=== PATIENT | female | born 1935 | race African-American/Black ===

== ENCOUNTER 2019-11-29 17:49 | Inpatient (IN) | payer MEDICARE, OTHER ==
[~2019-11-29] VITALS: Ht 157.5 cm; Wt 75.7 kg
[~2019-11-29 17:49] MED LIST: ALPR0.5T PO; AMLO10TA80 PO; ASPI-1158 PO; ATEN-42 PO; CALC3.8S BOTHNSTRLS; CLOP75TA4 PO; IBUP-1008 PO; KCL PO; LEVO75TA7 PO; OMEP40CA12 PO; PROP20SO PO; SIMV-43 PO; TEMA30CA PO; voltaren gel TOP
[2019-11-29 18:37] LABS: BASOPHILS % 0.9 % (0.0-2.0); EOSINOPHILS % 1.4 % (0.0-5.0); HEMATOCRIT. 39.8 % (36.0-48.0); LYMPHOCYTES % 45.3 % (20.0-50.0); MEAN CORPUSCULAR HEMOGLOBIN 28.2 pg (28.0-32.0); MEAN PLATELET VOLUME 8.7 fl (7.4-10.4); NEUTROPHILS % 46.4 % (40.0-76.0); PLATELET 117 x1000/uL (130-400); RED BLOOD CELL COUNT 4.63 mill/uL (4.2-5.4)
[2019-11-29 18:53] LABS: INR 1.1; PROTHROMBIN TIME 11.1 sec (9.6-11.0)
[2019-11-29 18:58] LABS: CHLORIDE 105 mEq/L (98-107)
[2019-11-29 19:05] LABS: PHOSPHORUS 2.9 mg/dL (2.5-4.9)
[2019-11-29] MEDS ORDERED: POTASSIUM CHLORIDE 20MEQ TABLET SR PO ONE (19:15)
[2019-11-29] MEDS ORDERED: ASPIRIN 81MG TABLET PO ONE (19:45)
[2019-11-29 20:09] LABS: CLARITY URINE CLEAR (CLEAR); COLOR URINE DARK YELLOW (YELLOW); KETONES URINE NEGATIVE (NEGATIVE); LEUKOCYTE ESTERASE URINE TRACE (NEGATIVE); NITRITE URINE NEGATIVE (NEGATIVE); OCCULT BLOOD URINE NEGATIVE (NEGATIVE); PROTEIN URINE 1+ (NEGATIVE); UROBILINOGEN URINE 0.2 E.U./dL (0.2-1.0)
[2019-11-29 23:40] VITALS: BP 137/66
[2019-11-30] MEDS ORDERED: P20 MT (00:27)
[2019-11-30] MEDS ORDERED: MESA1.2T2 PO (00:27)
[2019-11-30] MEDS ORDERED: METO25TA6 MT (00:53)
[2019-11-30] MEDS ORDERED: FURO20TA4 MT (00:53)
[2019-11-30] MEDS ORDERED: ATOR10TA69 MT (00:53)
[2019-11-30] MEDS ORDERED: CLOP75TA4 MT (00:53)
[2019-11-30] MEDS ORDERED: DEXTROSE 50% WATER 50ML SYRINGE IV PRN (01:15)
[2019-11-30] MEDS ORDERED: ACETAMINOPHEN 325MG TABLET PO PRN (01:15)
[2019-11-30] MEDS ORDERED: ONDANSETRON HCL 4MG/2ML INJ IV PRN (01:15)
[2019-11-30 04:00] VITALS: BP 99/45
[2019-11-30] MEDS: BLOOD SUGAR DIAGNOSTIC STRIP TEST SCH ×4 (06:10→21:12)
[2019-11-30] MEDS: LEVOTHYROXINE SODIUM 75MCG TABLET PO SCH (06:12)
[2019-11-30 06:37] LABS: CHLORIDE 105 mEq/L (98-107)
[2019-11-30] MEDS: INSULIN LISPRO 100 UNITS/ML SUBCUT SCH ×4 (06:48→21:19)
[2019-11-30 07:02] LABS: BASOPHILS % 0.6 % (0.0-2.0); EOSINOPHILS % 2.7 % (0.0-5.0); HEMATOCRIT. 38.3 % (36.0-48.0); HEMOGLOBIN. 12.4 g/dL (12.0-16.0); MEAN CORPUSCULAR HEMOGLOBIN 28.5 pg (28.0-32.0); MEAN CORPUSCULAR VOLUME 88.1 fL (81.0-99.0); MEAN PLATELET VOLUME 9.3 fl (7.4-10.4); MONOCYTES % 8.6 % (2.0-8.0); NEUTROPHILS % 47.1 % (40.0-76.0); PLATELET 109 x1000/uL (130-400); RED BLOOD CELL COUNT 4.35 mill/uL (4.2-5.4); RED CELL DISTRIBUTION WIDTH 16.2 % (11.6-14.6)
[2019-11-30] MEDS: PREDNISONE 20MG TABLET PO SCH ×2 (08:37→17:08)
[2019-11-30] MEDS: METOPROLOL TARTRATE 25MG TABLET PO SCH ×2 (08:38→21:00)
[2019-11-30] MEDS: ASPIRIN 81MG EC TABLET PO SCH (08:38)
[2019-11-30] MEDS: CLOPIDOGREL 75MG TABLET PO SCH (08:42)
[2019-11-30] MEDS: ENOXAPARIN 30MG/0.3ML SYR SUBCUT SCH ×2 (08:42→15:05)
[2019-11-30] MEDS: POTASSIUM CHLORIDE 20MEQ TABLET SR PO SCH (08:52)
[2019-11-30] MEDS ORDERED: FUROSEMIDE 40MG/4ML VIAL IVP SCH (09:00)
[2019-11-30 11:49] VITALS: BP 112/95
[2019-11-30 11:52] VITALS: BP 112/55
[2019-11-30 16:00] VITALS: BP 119/73
[2019-11-30] MEDS: FUROSEMIDE 40MG/4ML VIAL IVP SCH (17:08)
[2019-11-30 20:00] VITALS: BP 100/50
[2019-11-30] MEDS: ATORVASTATIN CALCIUM 20MG TABLET PO SCH (20:17)
[2019-12-01] VITALS: BP 104/62
[2019-12-01 04:00] VITALS: BP 130/80
[2019-12-01] MEDS: LEVOTHYROXINE SODIUM 75MCG TABLET PO SCH (06:15)
[2019-12-01] MEDS: BLOOD SUGAR DIAGNOSTIC STRIP TEST SCH ×4 (06:15→21:34)
[2019-12-01] MEDS: INSULIN LISPRO 100 UNITS/ML SUBCUT SCH ×4 (06:18→21:37)
[2019-12-01 08:00] VITALS: BP 111/78
[2019-12-01] MEDS: FUROSEMIDE 40MG/4ML VIAL IVP SCH (08:38)
[2019-12-01] MEDS: POTASSIUM CHLORIDE 20MEQ TABLET SR PO SCH (08:39)
[2019-12-01] MEDS: METOPROLOL TARTRATE 25MG TABLET PO SCH ×2 (08:39→21:00)
[2019-12-01] MEDS: ASPIRIN 81MG EC TABLET PO SCH (08:39)
[2019-12-01] MEDS: PREDNISONE 20MG TABLET PO SCH ×2 (08:39→17:28)
[2019-12-01] MEDS: CLOPIDOGREL 75MG TABLET PO SCH (08:40)
[2019-12-01 12:00] VITALS: BP 112/60
[2019-12-01 16:00] VITALS: BP 105/59
[2019-12-01 18:04] LABS: BASOPHILS % 0.1 % (0.0-2.0); HEMATOCRIT. 38.9 % (36.0-48.0); HEMOGLOBIN. 12.3 g/dL (12.0-16.0); LYMPHOCYTES % 14.8 % (20.0-50.0); MEAN CORPUSCULAR HEMOGLOBIN 27.7 pg (28.0-32.0); MEAN CORPUSCULAR VOLUME 87.3 fL (81.0-99.0); MEAN PLATELET VOLUME 9.8 fl (7.4-10.4); MONOCYTES % 3.8 % (2.0-8.0); NEUTROPHILS % 81.3 % (40.0-76.0); PLATELET 196 x1000/uL (130-400); RED BLOOD CELL COUNT 4.46 mill/uL (4.2-5.4); RED CELL DISTRIBUTION WIDTH 15.9 % (11.6-14.6)
[2019-12-01 20:00] VITALS: BP 105/64
[2019-12-01] MEDS: ATORVASTATIN CALCIUM 20MG TABLET PO SCH (21:34)
[2019-12-02] VITALS: BP 111/66
[2019-12-02 04:00] VITALS: BP 109/51
[2019-12-02] MEDS: BLOOD SUGAR DIAGNOSTIC STRIP TEST SCH ×3 (06:34→17:27)
[2019-12-02] MEDS: INSULIN LISPRO 100 UNITS/ML SUBCUT SCH ×3 (06:37→17:26)
[2019-12-02] MEDS: LEVOTHYROXINE SODIUM 75MCG TABLET PO SCH (06:37)
[2019-12-02 08:00] VITALS: BP 106/55
[2019-12-02] MEDS: METOPROLOL TARTRATE 25MG TABLET PO SCH (09:00)
[2019-12-02] MEDS: POTASSIUM CHLORIDE 20MEQ TABLET SR PO SCH (09:47)
[2019-12-02] MEDS: CLOPIDOGREL 75MG TABLET PO SCH (09:47)
[2019-12-02] MEDS: ASPIRIN 81MG EC TABLET PO SCH (09:47)
[2019-12-02] MEDS: FUROSEMIDE 40MG/4ML VIAL IVP SCH (09:47)
[2019-12-02] MEDS: PREDNISONE 20MG TABLET PO SCH ×2 (09:47→17:26)
[2019-12-02] MEDS: ENOXAPARIN 30MG/0.3ML SYR SUBCUT SCH (09:48)
[2019-12-02 12:00] VITALS: BP 109/56
[2019-12-02 16:17] VITALS: BP 109/56
== END 2019-12-02 17:35 | DRG 291 ==
LOC: ER 17:49 → MICUSO 19:34 → EDBEDREQ 19:38 → EDBEDREQTM 19:38 → 8WST 11-30 00:07
PROVIDERS: ADMIT Internal Medicine; ATTEND Internal Medicine
DX: I13.0 Hypertensive heart and chronic kidney disease with heart failure and stage 1 through stage 4 chronic kidney disease, or unspecified chronic kidney disease (principal); J96.21 Acute and chronic respiratory failure with hypoxia; I50.33 Acute on chronic diastolic (congestive) heart failure; N17.0 Acute kidney failure with tubular necrosis; E43 Unspecified severe protein-calorie malnutrition; E87.1 Hypo-osmolality and hyponatremia; J44.1 Chronic obstructive pulmonary disease with (acute) exacerbation; I42.9 Cardiomyopathy, unspecified; I49.3 Ventricular premature depolarization; D69.6 Thrombocytopenia, unspecified; E03.9 Hypothyroidism, unspecified; E66.9 Obesity, unspecified; E78.5 Hyperlipidemia, unspecified; E87.6 Hypokalemia; F41.9 Anxiety disorder, unspecified; N18.9 Chronic kidney disease, unspecified; E11.22 Type 2 diabetes mellitus with diabetic chronic kidney disease; Z20.828 Contact with and (suspected) exposure to other viral communicable diseases; M48.00 Spinal stenosis, site unspecified; I25.10 Atherosclerotic heart disease of native coronary artery without angina pectoris; Z99.81 Dependence on supplemental oxygen; Z79.890 Hormone replacement therapy; Z79.82 Long term (current) use of aspirin; Z79.899 Other long term (current) drug therapy; Z86.73 Personal history of transient ischemic attack (TIA), and cerebral infarction without residual deficits; Z68.30 Body mass index [BMI] 30.0-30.9, adult; Z90.721 Acquired absence of ovaries, unilateral
CPT/HCPCS: 36415; 71045; 80048; 80053; 81003; 82962; 83036; 83735; 83880; 84100; 84484; 85025; 87635; 93005; 93306; 97110; 97116; 97162; 97166; 97530; 99285; J1650; J1815; J1940; J7512

== ENCOUNTER 2019-12-02 17:35 | Inpatient (IN) | payer MEDICARE, OTHER ==
[~2019-12-02] VITALS: Ht 157.5 cm; Wt 75.8 kg
[~2019-12-02 17:35] MED LIST changes: +ATOR10TA69 MT; +CLOP75TA4 MT; +FURO20TA4 MT; +MESA1.2T2 PO; +METO25TA6 MT; +P20 MT
[2019-12-02] MEDS ORDERED: ONDANSETRON HCL 4MG/2ML INJ IV PRN (18:15)
[2019-12-02] MEDS ORDERED: DEXTROSE 50% WATER 50ML SYRINGE IV PRN (18:15)
[2019-12-02] MEDS ORDERED: ACETAMINOPHEN 325MG TABLET PO PRN (18:15)
[2019-12-02 18:19] VITALS: BP 121/62
[2019-12-02 20:00] VITALS: BP 133/63
[2019-12-02] MEDS: ATORVASTATIN CALCIUM 20MG TABLET PO SCH (20:43)
[2019-12-02] MEDS: METOPROLOL TARTRATE 25MG TABLET PO SCH (20:45)
[2019-12-02] MEDS: BLOOD SUGAR DIAGNOSTIC STRIP TEST SCH (20:48)
[2019-12-02] MEDS: INSULIN LISPRO 100 UNITS/ML SUBCUT SCH (20:55)
[2019-12-03] MEDS: BLOOD SUGAR DIAGNOSTIC STRIP TEST SCH ×4 (06:16→21:09)
[2019-12-03] MEDS: LEVOTHYROXINE SODIUM 75MCG TABLET PO SCH (06:16)
[2019-12-03 07:17] VITALS: BP 130/65
[2019-12-03 07:28] LABS: BASOPHILS % 0.3 % (0.0-2.0); HEMATOCRIT. 36.1 % (36.0-48.0); HEMOGLOBIN. 11.8 g/dL (12.0-16.0); LYMPHOCYTES % 14.2 % (20.0-50.0); MEAN CORPUSCULAR HEMOGLOBIN 28.7 pg (28.0-32.0); MEAN CORPUSCULAR VOLUME 87.7 fL (81.0-99.0); MEAN PLATELET VOLUME 9.4 fl (7.4-10.4); MONOCYTES % 2.8 % (2.0-8.0); NEUTROPHILS % 82.7 % (40.0-76.0); PLATELET 283 x1000/uL (130-400); RED BLOOD CELL COUNT 4.11 mill/uL (4.2-5.4); RED CELL DISTRIBUTION WIDTH 16.1 % (11.6-14.6)
[2019-12-03 07:32] LABS: CHLORIDE 105 mEq/L (98-107)
[2019-12-03] MEDS: INSULIN LISPRO 100 UNITS/ML SUBCUT SCH ×4 (08:45→21:34)
[2019-12-03] MEDS: METOPROLOL TARTRATE 25MG TABLET PO SCH ×2 (08:54→21:12)
[2019-12-03] MEDS: CLOPIDOGREL 75MG TABLET PO SCH (08:54)
[2019-12-03] MEDS: PREDNISONE 20MG TABLET PO SCH ×2 (08:55→17:16)
[2019-12-03] MEDS: ASPIRIN 81MG EC TABLET PO SCH (08:56)
[2019-12-03] MEDS: POTASSIUM CHLORIDE 20MEQ TABLET SR PO SCH (08:56)
[2019-12-03] MEDS: FUROSEMIDE 40MG/4ML VIAL IVP SCH (08:57)
[2019-12-03] MEDS: ENOXAPARIN 30MG/0.3ML SYR SUBCUT SCH (08:57)
[2019-12-03] MEDS ORDERED: ASPIRIN 81MG TABLET PO SCH (09:00)
[2019-12-03 20:00] VITALS: BP 130/65
[2019-12-03] MEDS: ATORVASTATIN CALCIUM 20MG TABLET PO SCH (21:11)
[2019-12-04 00:04] LABS: CLARITY URINE CLEAR (CLEAR); COLOR URINE YELLOW (YELLOW); KETONES URINE NEGATIVE (NEGATIVE); LEUKOCYTE ESTERASE URINE 2+ (NEGATIVE); NITRITE URINE NEGATIVE (NEGATIVE); OCCULT BLOOD URINE NEGATIVE (NEGATIVE); PROTEIN URINE TRACE (NEGATIVE); SPECIFIC GRAVITY URINE 1.017 (1.005-1.030); UROBILINOGEN URINE 0.2 E.U./dL (0.2-1.0)
[2019-12-04] MEDS: BLOOD SUGAR DIAGNOSTIC STRIP TEST SCH ×4 (05:58→21:39)
[2019-12-04] MEDS: INSULIN LISPRO 100 UNITS/ML SUBCUT SCH ×4 (05:58→21:42)
[2019-12-04] MEDS: LEVOTHYROXINE SODIUM 75MCG TABLET PO SCH (06:08)
[2019-12-04 06:18] LABS: BASOPHILS % 0.2 % (0.0-2.0); HEMATOCRIT. 36.1 % (36.0-48.0); HEMOGLOBIN. 11.8 g/dL (12.0-16.0); MEAN CORPUSCULAR HEMOGLOBIN 28.4 pg (28.0-32.0); MEAN CORPUSCULAR VOLUME 86.9 fL (81.0-99.0); MEAN PLATELET VOLUME 8.4 fl (7.4-10.4); MONOCYTES % 4.7 % (2.0-8.0); NEUTROPHILS % 79.1 % (40.0-76.0); PLATELET 337 x1000/uL (130-400); RED BLOOD CELL COUNT 4.15 mill/uL (4.2-5.4)
[2019-12-04 06:42] LABS: PHOSPHORUS 3.6 mg/dL (2.5-4.9)
[2019-12-04 07:01] LABS: FOLIC ACID (FOLATE) SERUM 15.1 ng/mL (>5.38)
[2019-12-04 08:10] VITALS: BP 148/99
[2019-12-04] MEDS: POTASSIUM CHLORIDE 20MEQ TABLET SR PO SCH (08:49)
[2019-12-04] MEDS: FUROSEMIDE 40MG/4ML VIAL IVP SCH (08:49)
[2019-12-04] MEDS: ASPIRIN 81MG EC TABLET PO SCH (08:49)
[2019-12-04] MEDS: CLOPIDOGREL 75MG TABLET PO SCH (08:49)
[2019-12-04] MEDS: PREDNISONE 20MG TABLET PO SCH ×2 (08:50→16:14)
[2019-12-04] MEDS: METOPROLOL TARTRATE 25MG TABLET PO SCH ×2 (08:50→21:39)
[2019-12-04] MEDS: ENOXAPARIN 30MG/0.3ML SYR SUBCUT SCH (08:51)
[2019-12-04 20:00] VITALS: BP 126/63
[2019-12-04] MEDS: ATORVASTATIN CALCIUM 20MG TABLET PO SCH (21:38)
[2019-12-05] MEDS: LEVOTHYROXINE SODIUM 75MCG TABLET PO SCH (06:02)
[2019-12-05] MEDS: BLOOD SUGAR DIAGNOSTIC STRIP TEST SCH ×4 (06:02→21:00)
[2019-12-05] MEDS: INSULIN LISPRO 100 UNITS/ML SUBCUT SCH ×4 (06:02→22:40)
[2019-12-05 07:41] VITALS: BP 123/43
[2019-12-05] MEDS: CLOPIDOGREL 75MG TABLET PO SCH (08:19)
[2019-12-05] MEDS: FUROSEMIDE 40MG/4ML VIAL IVP SCH (08:19)
[2019-12-05] MEDS: PREDNISONE 20MG TABLET PO SCH (08:19)
[2019-12-05] MEDS: POTASSIUM CHLORIDE 20MEQ TABLET SR PO SCH (08:19)
[2019-12-05] MEDS: ASPIRIN 81MG EC TABLET PO SCH (08:19)
[2019-12-05] MEDS: METOPROLOL TARTRATE 25MG TABLET PO SCH (08:20)
[2019-12-05] MEDS: ENOXAPARIN 30MG/0.3ML SYR SUBCUT SCH (08:20)
[2019-12-05 20:00] VITALS: BP 142/62
[2019-12-05] MEDS: ATORVASTATIN CALCIUM 20MG TABLET PO SCH (22:39)
[2019-12-06] MEDS: BLOOD SUGAR DIAGNOSTIC STRIP TEST SCH ×4 (06:12→21:34)
[2019-12-06] MEDS: INSULIN LISPRO 100 UNITS/ML SUBCUT SCH ×4 (06:12→21:34)
[2019-12-06] MEDS: LEVOTHYROXINE SODIUM 75MCG TABLET PO SCH (06:29)
[2019-12-06 06:54] LABS: BASOPHILS % 0.4 % (0.0-2.0); EOSINOPHILS % 0.6 % (0.0-5.0); HEMATOCRIT. 37.5 % (36.0-48.0); HEMOGLOBIN. 12.2 g/dL (12.0-16.0); LYMPHOCYTES % 24.9 % (20.0-50.0); MEAN CORPUSCULAR HEMOGLOBIN 28.4 pg (28.0-32.0); MEAN CORPUSCULAR VOLUME 87.4 fL (81.0-99.0); MEAN PLATELET VOLUME 7.9 fl (7.4-10.4); MONOCYTES % 6.8 % (2.0-8.0); NEUTROPHILS % 67.3 % (40.0-76.0); PLATELET 389 x1000/uL (130-400); RED BLOOD CELL COUNT 4.29 mill/uL (4.2-5.4); RED CELL DISTRIBUTION WIDTH 16.3 % (11.6-14.6)
[2019-12-06 07:47] LABS: PHOSPHORUS 3.2 mg/dL (2.5-4.9)
[2019-12-06 07:53] VITALS: BP 112/69
[2019-12-06] MEDS: FUROSEMIDE 40MG TABLET PO SCH (09:19)
[2019-12-06] MEDS: ASPIRIN 81MG TABLET PO SCH (09:19)
[2019-12-06] MEDS: ENOXAPARIN 30MG/0.3ML SYR SUBCUT SCH (09:20)
[2019-12-06] MEDS: POTASSIUM CHLORIDE 20MEQ TABLET SR PO SCH (09:20)
[2019-12-06] MEDS: CLOPIDOGREL 75MG TABLET PO SCH (09:20)
[2019-12-06] MEDS: PREDNISONE 20MG TABLET PO SCH (09:20)
[2019-12-06 20:00] VITALS: BP 129/67
[2019-12-06] MEDS: ATORVASTATIN CALCIUM 20MG TABLET PO SCH (21:33)
[2019-12-07] MEDS: BLOOD SUGAR DIAGNOSTIC STRIP TEST SCH ×4 (06:09→21:00)
[2019-12-07] MEDS: LEVOTHYROXINE SODIUM 75MCG TABLET PO SCH (06:09)
[2019-12-07 08:00] VITALS: BP 128/62
[2019-12-07] MEDS: POTASSIUM CHLORIDE 20MEQ TABLET SR PO SCH (08:40)
[2019-12-07] MEDS: FUROSEMIDE 40MG TABLET PO SCH (08:40)
[2019-12-07] MEDS: PREDNISONE 20MG TABLET PO SCH (08:40)
[2019-12-07] MEDS: ASPIRIN 81MG TABLET PO SCH (08:40)
[2019-12-07] MEDS: CLOPIDOGREL 75MG TABLET PO SCH (08:40)
[2019-12-07] MEDS: ENOXAPARIN 30MG/0.3ML SYR SUBCUT SCH (08:41)
[2019-12-07] MEDS: INSULIN LISPRO 100 UNITS/ML SUBCUT SCH ×4 (08:41→22:02)
[2019-12-07] MEDS ORDERED: REGADENOSON 0.4 MG/5 ML IV NR (10:30)
[2019-12-07 11:16] LABS: HEMATOCRIT. 38.9 % (36.0-48.0); HEMOGLOBIN. 12.3 g/dL (12.0-16.0); MEAN CORPUSCULAR HEMOGLOBIN 28.2 pg (28.0-32.0); MEAN CORPUSCULAR VOLUME 88.8 fL (81.0-99.0); MEAN PLATELET VOLUME 7.9 fl (7.4-10.4); PLATELET 421 x1000/uL (130-400); RED BLOOD CELL COUNT 4.38 mill/uL (4.2-5.4); RED CELL DISTRIBUTION WIDTH 16.6 % (11.6-14.6)
[2019-12-07 11:19] LABS: CHLORIDE 107 mEq/L (98-107)
[2019-12-07 13:51] LABS: PLATELET ESTIMATE SLIGHTLY INCREASED
[2019-12-07 20:00] VITALS: BP 145/74
[2019-12-07] MEDS: ATORVASTATIN CALCIUM 20MG TABLET PO SCH (21:55)
[2019-12-08] MEDS: BLOOD SUGAR DIAGNOSTIC STRIP TEST SCH ×4 (05:43→20:50)
[2019-12-08] MEDS: LEVOTHYROXINE SODIUM 75MCG TABLET PO SCH (06:14)
[2019-12-08 08:00] VITALS: BP 130/71
[2019-12-08] MEDS: FUROSEMIDE 40MG TABLET PO SCH (08:03)
[2019-12-08] MEDS: PREDNISONE 20MG TABLET PO SCH (08:03)
[2019-12-08] MEDS: POTASSIUM CHLORIDE 20MEQ TABLET SR PO SCH (08:03)
[2019-12-08] MEDS: ASPIRIN 81MG TABLET PO SCH (08:03)
[2019-12-08] MEDS: CLOPIDOGREL 75MG TABLET PO SCH (08:03)
[2019-12-08] MEDS: INSULIN LISPRO 100 UNITS/ML SUBCUT SCH ×4 (08:04→21:44)
[2019-12-08] MEDS: ENOXAPARIN 30MG/0.3ML SYR SUBCUT SCH (08:04)
[2019-12-08 08:40] LABS: HEMATOCRIT. 37.3 % (36.0-48.0); MEAN CORPUSCULAR HEMOGLOBIN 28.2 pg (28.0-32.0); PLATELET 444 x1000/uL (130-400); RED BLOOD CELL COUNT 4.24 mill/uL (4.2-5.4); RED CELL DISTRIBUTION WIDTH 16.5 % (11.6-14.6)
[2019-12-08 08:54] LABS: CHLORIDE 106 mEq/L (98-107)
[2019-12-08 14:13] LABS: 25-HYDROXY VITAMIN D3 19 ng/mL (.)
[2019-12-08 20:00] VITALS: BP 110/58
[2019-12-08] MEDS: DIPHENHYDRAMINE 25MG CAPSULE PO PRN (20:50)
[2019-12-08] MEDS: ATORVASTATIN CALCIUM 20MG TABLET PO SCH (20:50)
[2019-12-09] MEDS: INSULIN LISPRO 100 UNITS/ML SUBCUT SCH ×4 (06:15→21:34)
[2019-12-09] MEDS: LEVOTHYROXINE SODIUM 75MCG TABLET PO SCH (06:15)
[2019-12-09] MEDS: BLOOD SUGAR DIAGNOSTIC STRIP TEST SCH ×4 (06:15→21:09)
[2019-12-09 06:55] LABS: CHLORIDE 107 mEq/L (98-107)
[2019-12-09 07:10] LABS: BASOPHILS % 0.3 % (0.0-2.0); EOSINOPHILS % 0.6 % (0.0-5.0); HEMATOCRIT. 36.3 % (36.0-48.0); HEMOGLOBIN. 11.8 g/dL (12.0-16.0); LYMPHOCYTES % 35.6 % (20.0-50.0); MEAN CORPUSCULAR HEMOGLOBIN 28.5 pg (28.0-32.0); MEAN CORPUSCULAR VOLUME 87.3 fL (81.0-99.0); NEUTROPHILS % 56.5 % (40.0-76.0); PLATELET 424 x1000/uL (130-400); RED BLOOD CELL COUNT 4.16 mill/uL (4.2-5.4); RED CELL DISTRIBUTION WIDTH 16.5 % (11.6-14.6)
[2019-12-09 07:20] LABS: HEPATITIS B SURFACE ANTIGEN NEGATIVE
[2019-12-09 07:44] VITALS: BP 126/62
[2019-12-09 07:50] LABS: HEPATITIS A AB IGM NEGATIVE (NEGATIVE)
[2019-12-09] MEDS: POTASSIUM CHLORIDE 20MEQ TABLET SR PO SCH (08:09)
[2019-12-09] MEDS: ASPIRIN 81MG TABLET PO SCH (08:09)
[2019-12-09] MEDS: CLOPIDOGREL 75MG TABLET PO SCH (08:09)
[2019-12-09] MEDS: FUROSEMIDE 40MG TABLET PO SCH (08:09)
[2019-12-09] MEDS: ENOXAPARIN 30MG/0.3ML SYR SUBCUT SCH (08:09)
[2019-12-09] MEDS: PREDNISONE 20MG TABLET PO SCH (08:09)
[2019-12-09 13:51] LABS: NUCLEATED RED BLOOD CELLS 1 /100 WBC; PLATELET ESTIMATE INCREASED
[2019-12-09 20:00] VITALS: BP 133/60
[2019-12-09] MEDS: ATORVASTATIN CALCIUM 20MG TABLET PO SCH (21:09)
[2019-12-09] MEDS: DIPHENHYDRAMINE 25MG CAPSULE PO PRN (22:06)
[2019-12-10] MEDS: LEVOTHYROXINE SODIUM 75MCG TABLET PO SCH (06:08)
[2019-12-10] MEDS: BLOOD SUGAR DIAGNOSTIC STRIP TEST SCH ×4 (06:11→21:31)
[2019-12-10] MEDS: INSULIN LISPRO 100 UNITS/ML SUBCUT SCH ×4 (06:11→21:00)
[2019-12-10 07:40] VITALS: BP 132/60
[2019-12-10] MEDS: ASPIRIN 81MG TABLET PO SCH (08:56)
[2019-12-10] MEDS: ENOXAPARIN 30MG/0.3ML SYR SUBCUT SCH (08:56)
[2019-12-10] MEDS: CLOPIDOGREL 75MG TABLET PO SCH (08:56)
[2019-12-10] MEDS: PREDNISONE 20MG TABLET PO SCH (08:56)
[2019-12-10] MEDS: FUROSEMIDE 40MG TABLET PO SCH (08:56)
[2019-12-10] MEDS: POTASSIUM CHLORIDE 20MEQ TABLET SR PO SCH (09:25)
[2019-12-10] MEDS: ATORVASTATIN CALCIUM 20MG TABLET PO SCH (21:32)
[2019-12-10 21:44] VITALS: BP 142/80
[2019-12-11] MEDS: BLOOD SUGAR DIAGNOSTIC STRIP TEST SCH ×4 (06:12→21:48)
[2019-12-11] MEDS: LEVOTHYROXINE SODIUM 75MCG TABLET PO SCH (06:12)
[2019-12-11] MEDS: INSULIN LISPRO 100 UNITS/ML SUBCUT SCH ×4 (06:13→21:00)
[2019-12-11 08:00] VITALS: BP 144/58
[2019-12-11] MEDS: FUROSEMIDE 40MG TABLET PO SCH (08:33)
[2019-12-11] MEDS: ENOXAPARIN 30MG/0.3ML SYR SUBCUT SCH (08:33)
[2019-12-11] MEDS: CLOPIDOGREL 75MG TABLET PO SCH (08:33)
[2019-12-11] MEDS: ASPIRIN 81MG TABLET PO SCH (08:33)
[2019-12-11] MEDS: POTASSIUM CHLORIDE 20MEQ TABLET SR PO SCH (09:07)
[2019-12-11] MEDS ORDERED: ERGOCALCIFEROL 50000UNITS CAPSULE PO SCH (14:15)
[2019-12-11 20:00] VITALS: BP 153/69
[2019-12-11] MEDS: ATORVASTATIN CALCIUM 20MG TABLET PO SCH (21:48)
[2019-12-12] MEDS: LEVOTHYROXINE SODIUM 75MCG TABLET PO SCH (06:12)
[2019-12-12] MEDS: BLOOD SUGAR DIAGNOSTIC STRIP TEST SCH ×4 (06:12→21:59)
[2019-12-12] MEDS: INSULIN LISPRO 100 UNITS/ML SUBCUT SCH ×4 (06:13→21:00)
[2019-12-12 07:17] LABS: T4 FREE 1.06 ng/dL (0.76-1.46)
[2019-12-12 07:42] VITALS: BP 111/55
[2019-12-12] MEDS: FUROSEMIDE 40MG TABLET PO SCH (08:42)
[2019-12-12] MEDS: ASPIRIN 81MG TABLET PO SCH (08:42)
[2019-12-12] MEDS: CLOPIDOGREL 75MG TABLET PO SCH (08:42)
[2019-12-12] MEDS: POTASSIUM CHLORIDE 20MEQ TABLET SR PO SCH (08:42)
[2019-12-12] MEDS: ENOXAPARIN 30MG/0.3ML SYR SUBCUT SCH (08:43)
[2019-12-12] MEDS ORDERED: POTA20TA82 PO (14:02)
[2019-12-12] MEDS ORDERED: LEVO75TA7 PO (14:02)
[2019-12-12] MEDS ORDERED: ASPI-1160 PO (14:02)
[2019-12-12] MEDS ORDERED: CLOP75TA15 PO (14:02)
[2019-12-12] MEDS ORDERED: FLUT1DIS3 INH (14:02)
[2019-12-12] MEDS ORDERED: ATOR20TA PO (14:02)
[2019-12-12] MEDS ORDERED: FURO40TA5 PO (14:02)
[2019-12-12] MEDS ORDERED: ALBU18HF2 IH (14:02)
[2019-12-12 20:00] VITALS: BP 136/49
[2019-12-12] MEDS: ATORVASTATIN CALCIUM 20MG TABLET PO SCH (21:56)
[2019-12-12] MEDS: DIPHENHYDRAMINE 25MG CAPSULE PO PRN (21:56)
[2019-12-13] MEDS: LEVOTHYROXINE SODIUM 75MCG TABLET PO SCH (06:23)
[2019-12-13] MEDS: INSULIN LISPRO 100 UNITS/ML SUBCUT SCH ×2 (06:26→12:06)
[2019-12-13] MEDS: BLOOD SUGAR DIAGNOSTIC STRIP TEST SCH ×2 (06:26→12:06)
[2019-12-13 07:37] VITALS: BP 99/55
[2019-12-13] MEDS: POTASSIUM CHLORIDE 20MEQ TABLET SR PO SCH (08:16)
[2019-12-13] MEDS: CLOPIDOGREL 75MG TABLET PO SCH (08:16)
[2019-12-13] MEDS: FUROSEMIDE 40MG TABLET PO SCH (08:16)
[2019-12-13] MEDS: ASPIRIN 81MG TABLET PO SCH (08:16)
[2019-12-13] MEDS: ENOXAPARIN 30MG/0.3ML SYR SUBCUT SCH (08:17)
[2019-12-13 08:52] VITALS: BP 108/58
[2019-12-13 13:11] LABS: ANTI-THYROGLOBULIN AB < 1 IU/mL (0.0-0.9)
[2019-12-13 17:10] LABS: ANA IFA Negative (.)
[2019-12-13 19:06] LABS: ANTI-DNA DOUBLE STRANDED QUANT < 1 IU/mL (0-9)
[2019-12-13 19:06] LABS: ANTI-JO 1 ABS <0.2 AI (0.0-0.9); RNP ANTIBODY > 8.0 AI (0.0-0.9); SMITH ANTIBODY < 0.2 AI (0.0-0.9)
[2019-12-14 10:06] LABS: ANGIOTENSION CONVERTING ENZYME 30 U/L (14-82)
[2019-12-14 13:10] LABS: VITAMIN D 1-25 DIHYDROXY 30.4 pg/mL (19.9-79.3)
[2019-12-14 15:06] LABS: ANTI-MYELOPEROXIDASE AB < 9.0 U/mL (0.0-9.0); ANTI-PROTEINASE 3 ABS < 3.5 U/mL (0.0-3.5); ATYPICAL P-ANCA <1:20 titer (Neg:<1:20); CYTOPLASMIC C-ANCA <1:20 titer (Neg:<1:20); PERINUCLEAR P-ANCA <1:20 titer (Neg:<1:20)
[2019-12-15 04:07] LABS: ANTI-CARDIOLIPIN AB IGG < 9 GPL U/mL (0-14); ANTI-CARDIOLIPIN AB IGM < 9 MPL U/mL (0-12); CYC CITRULLINATED PEP IgG/IgA 5 units (0-19); DRVVT LA 32.1 sec (0.0-47.0); LUPUS ANTICOAG INTERPRETATION Comment: (.); PTT-LA 31.3 sec (0.0-51.9)
== END 2019-12-13 12:55 | disposition home health service (06) | DRG 190 ==
PROVIDERS: ADMIT Physical Medicine & Rehabilitation Spinal Cord Injury Medicine; ATTEND Internal Medicine
DX: J44.1 Chronic obstructive pulmonary disease with (acute) exacerbation (principal); I50.33 Acute on chronic diastolic (congestive) heart failure; J96.21 Acute and chronic respiratory failure with hypoxia; E43 Unspecified severe protein-calorie malnutrition; I13.0 Hypertensive heart and chronic kidney disease with heart failure and stage 1 through stage 4 chronic kidney disease, or unspecified chronic kidney disease; N17.9 Acute kidney failure, unspecified; E87.1 Hypo-osmolality and hyponatremia; I42.9 Cardiomyopathy, unspecified; E87.6 Hypokalemia; E78.5 Hyperlipidemia, unspecified; E66.9 Obesity, unspecified; E03.9 Hypothyroidism, unspecified; D69.6 Thrombocytopenia, unspecified; Z20.828 Contact with and (suspected) exposure to other viral communicable diseases; E11.22 Type 2 diabetes mellitus with diabetic chronic kidney disease; G89.29 Other chronic pain; M48.061 Spinal stenosis, lumbar region without neurogenic claudication; F41.9 Anxiety disorder, unspecified; R26.9 Unspecified abnormalities of gait and mobility; R19.7 Diarrhea, unspecified; R53.81 Other malaise; I49.3 Ventricular premature depolarization; N18.9 Chronic kidney disease, unspecified; M19.90 Unspecified osteoarthritis, unspecified site; M50.30 Other cervical disc degeneration, unspecified cervical region; R47.02 Dysphasia; E55.9 Vitamin D deficiency, unspecified; Z86.73 Personal history of transient ischemic attack (TIA), and cerebral infarction without residual deficits; Z90.721 Acquired absence of ovaries, unilateral; Z99.81 Dependence on supplemental oxygen; Z79.899 Other long term (current) drug therapy; Z79.02 Long term (current) use of antithrombotics/antiplatelets; Z87.891 Personal history of nicotine dependence; Z71.3 Dietary counseling and surveillance; Z68.30 Body mass index [BMI] 30.0-30.9, adult
CPT/HCPCS: 36415; 71045; 80048; 80053; 81003; 82085; 82164; 82306; 82550; 82607; 82652; 82728; 82746; 82962; 83520; 83540; 83550; 83735; 83880; 84100; 84134; 84439; 84443; 84484; 84550; 85025; 85613; 85651; 85732; 86038; 86147; 86160; 86200; 86225; 86235; 86256; 86431; 86705; 86709; 86800; 86803; 87340; 92610; 93005; 93970; 97110; 97116; 97162; 97166; 97530; 97535; J1650; J1815; J1940; J7512; Q0163